=== PATIENT | male | born 1950 | race Caucasian/White ===

== ENCOUNTER 2020-09-19 13:01 | Outpatient (CLI) | payer OTHER, SELFPAY ==
--- NOTE | 2020-09-19 14:30 | NEURO_ITS ---
Impression: # Complains of numbness of hands. # Severe left Carpal Tunnel Syndrome. # Mild to moderate right Carpal Tunnel Syndrome. # No ulnar neuropathy across the elbow. # Abnormal needle/EMG exam of left APB. Nerve Conduction Studies Anti Sensory Summary Table Stim Site NR Peak (ms) P-T Amp (?V) Site1 Site2 Delta-P (ms) Dist (cm) Chadwick (m/s) Left Median Anti Sensory (2-3nd Digit) NO RESPONSE Wrist NR Wrist 2-3nd Digit 14.0 Wrist NR Wrist 2-3nd Digit 14.0 Right Median Anti Sensory (2-3nd Digit) Wrist 7.2 15.8 Wrist 2-3nd Digit 7.2 14.0 19 Wrist 8.0 21.6 Wrist 2-3nd Digit 7.2 14.0 19 Left Radial Anti Sensory (Base 1st Digit) Wrist 1.9 13.3 Wrist Base 1st Digit 1.9 0.0 Right Radial Anti Sensory (Base 1st Digit) Wrist 2.0 10.1 Wrist Base 1st Digit 2.0 0.0 Left Ulnar Anti Sensory (5th Digit) Wrist 2.7 50.1 Wrist 5th Digit 2.7 14.0 52 Right Ulnar Anti Sensory (5th Digit) Wrist 2.6 26.3 Wrist 5th Digit 2.6 14.0 54 Motor Summary Table Stim Site NR Onset (ms) O-P Amp (mV) Site1 Site2 Delta-0 (ms) Dist (cm) Chadwick (m/s) Left Median Motor (Abd Poll Brev) NO RESPONSE Wrist NR Elbow Wrist 26.0 Elbow NR Right Median Motor (Abd Poll Brev) Wrist 4.7 1.5 Elbow Wrist 5.2 31.0 60 Elbow 9.9 4.5 Left Ulnar Motor (Abd Dig Minimi) Wrist 3.0 5.5 A Elbow Wrist 5.4 32.0 59 A Elbow 8.4 4.4 Right Ulnar Motor (Abd Dig Minimi) Wrist 2.7 6.0 A Elbow Wrist 5.3 31.0 58 A Elbow 8.0 4.5 F Wave Studies NR F-Lat (ms) L-R F-Lat (ms) Left Median (Mrkrs) (Abd Poll Brev) DISPERSED RESPONSE NR Right Median (Mrkrs) (Abd Poll Brev) 30.24 Left Ulnar (Mrkrs) (Abd Dig Min) 29.87 1.67 Right Ulnar (Mrkrs) (Abd Dig Min) 28.20 1.67 EMG Side Muscle Nerve Root Ins Act Fibs Amp Dur Recrt Comment Right 1stDorInt Ulnar C8-T1 Nml Nml Nml Nml Nml Right Ext Indicis Radial (Post Int) C7-8 Nml Nml Nml Nml Nml Right Ext Digitorum Radial (Post Int) C7-8 Nml Nml Nml Nml Nml Right BrachioRad Radial C5-6 Nml Nml Nml Nml Nml Right PronatorTeres Median C6-7 Nml Nml Nml Nml Nml Right Abd Poll Brev Median C8-T1 Nml 1+ Nml >12ms Reduced Left 1stDorInt Ulnar C8-T1 Nml Nml Nml Nml Nml Left Ext Indicis Radial (Post Int) C7-8 Nml Nml Nml Nml Nml Left Ext Digitorum Radial (Post Int) C7-8 Nml Nml Nml Nml Nml Left BrachioRad Radial C5-6 Nml Nml Nml Nml Nml Left PronatorTeres Median C6-7 Nml Nml Nml Nml Nml Left Abd Poll Brev Median C8-T1 Nml 1+ Nml >12ms Reduced MTDD
== END 2020-09-19 13:02 | disposition home or self-care (01) ==
PROVIDERS: PCP Family Medicine; Visit Provider Family Medicine
DX: R20.2 Paresthesia of skin (principal); G56.03 Carpal tunnel syndrome, bilateral upper limbs
CPT/HCPCS: 95886; 95911

== ENCOUNTER → 2021-01-15 10:30 | Outpatient (CLI) | payer OTHER, SELFPAY ==
--- NOTE | ~2021-01-15 | XR_ITS ---
XR lumbar spine 2-3V DATE: 01/15/2021 10:50 INDICATION: Low back pain TECHNIQUE: AP, lateral, coned lateral lumbosacral views COMPARISON: 05/31/2018 lumbar spine FINDINGS: There is diffuse idiopathic skeletal hyperostosis of the lower thoracic and lumbar spine. V rodney prominent bridging osteophytes are noted in the lumbar area in particular. No fracture or bone destruction is evident. The included lower thoracic and lumbar pedicles appear in tact. There is mild loss of height at L4-5 interspace and moderately severe loss of interspace height at L5 -S1. The sacroiliac joints are intact. IMPRESSION: Diffuse idiopathic skeletal hyperostosis Mild degenerative disc disease at L4-5, moderately severe degenerative disc disease at L5-S1 Reviewed, dictated and finalized at location A. IMPRESSION: Diffuse idiopathic skeletal hyperostosis Mild degenerative disc disease at L4-5, moderately severe degenerative disc dis ease at L5-S1
== END ==
PROVIDERS: PCP Family Medicine; Visit Provider Family Medicine
DX: M48.15 Ankylosing hyperostosis [Forestier], thoracolumbar region (principal); M47.817 Spondylosis without myelopathy or radiculopathy, lumbosacral region
CPT/HCPCS: 72100

== ENCOUNTER 2021-08-23 00:49 | Day surgery (SDC) | payer OTHER, SELFPAY ==
[2021-08-05 13:34] VITALS: BMI 33.8
[2021-08-23 10:06] VITALS: BP 116/83; PULSE 98; RESP 18; TEMP 35.7; O2SAT 99; BMI 32.8
--- NOTE | 2021-08-23 10:10 | WPDANESEPPF ---
Anes - Initial Pre Proc Eval Procedure: Operation Date: 08/23/21 11:15 Proposed Procedures p Screening Colonoscopy - Dilan Husain MD Date/Time: 08/23/21 10:10 Surgeon: Dilan Husain MD Pre Op Diagnosis: neoplasm scr & hx of colon polyps Patient Data Age: 70 Gender: M Height: 1.78 m Weight: 103.9 kg Last Vital Signs Temp 35.7 C L 08/23/21 10:06 Pulse 98 08/23/21 10:06 Resp 18 08/23/21 10:06 BP 116/83 08/23/21 10:06 Pulse Ox 99 08/23/21 10:06 Allergies Allergy/AdvReac Type Severity Reaction Status Date / Time No Known Allergies Allergy Verified 08/23/21 10:05 Home Medications Medication Instructions Recorded Confirmed Type atorvastatin 40 mg PO DAILY 08/05/21 08/05/21 History escitalopram oxalate [Lexapro] 10 mg PO DAILY 08/05/21 08/05/21 History finasteride 5 mg PO DAILY 08/05/21 08/05/21 History Patient hx anesthesia problems: none Family hx anesthesia problems: none Results Review: All pre-operative results and documents have been reviewed as part of the pre-operative evaluation. [facility] Past Medical History Medical History (Updated 08/23/21 @ 10:10 by Nakul Kuhn MD) Hyperlipidemia Obesity Surgical History Surgical History (Updated 08/23/21 @ 10:13 by Nakul Kuhn MD) H/O colonoscopy Hx of tonsillectomy Social History Social History Smoking status: Former smoker Substance use: never Living arrangements: alone Spiritual care concerns: No Anes - Eval Final PreProcedure Day of Procedure 08/23/21 10:10 Patient weight: obese Heart: regular rate and rhythm Lungs: clear to auscultation Airway: Mallampati scale class II Neurological: alert and oriented Last oral intake: >/= 8 hours ASA classification: II Emergent: no Anesthetic plan: proceed Anesthesia type and monitoring: general GIVS and standard monitoring Results Review: All pre-operative results and documents have been reviewed as part of the pre-operative evaluation. Informed Consent: The patient's anesthetic plan and its attendant risks and benefits were discussed with the patient/family/POA. Questions were solicited and answers provided to the satisfaction of the patient/family/POA.
--- NOTE | 2021-08-23 10:16 | P.CONGI_ITS ---
Assessment and Plan Assessment and plan (1) History of colon polyps: Code(s): Z86.010 - Personal history of colonic polyps Status: Acute Assessment and Plan: Patient has a prior history of colon polyps. Most recently 2016. Plan is for surveillance colonoscopy at this time. Further recommendations will be given after endoscopy. Anticipate follow-up at 5 year intervals. GI Consult Note Consult date/time: 08/23/21 10:16 HPI: Frank Wright is a 70 year old male Presents for screening colonoscopy. Patient's weight appetite and bowel movements are normal. He denies abdominal pain. He has had no bleeding. Family history is noncontributory. Patient has a prior history of colon polyp in 2017. He reports his is recovering from resection of a colon cancer as well. Patient self presents today for neoplasia screening. Review of Systems Review of Systems: All systems reviewed & are unremarkable except as noted in HPI and below PMFSH Past Medical History Medical History (Updated 08/23/21 @ 10:17 by Dilan Husain MD) Hyperlipidemia Obesity Surgical History Surgical History (Updated 08/23/21 @ 10:13 by Nakul Kuhn MD) H/O colonoscopy Hx of tonsillectomy Social History Social History Smoking status: Former smoker Substance use: never Living arrangements: alone Spiritual care concerns: No Meds Home Medications and Allergies Home Medications Medication Instructions Recorded Confirmed Type atorvastatin 40 mg PO DAILY 08/05/21 08/05/21 History escitalopram oxalate [Lexapro] 10 mg PO DAILY 08/05/21 08/05/21 History finasteride 5 mg PO DAILY 08/05/21 08/05/21 History Allergies Allergy/AdvReac Type Severity Reaction Status Date / Time No Known Allergies Allergy Verified 08/23/21 10:05 Vital Signs Vital Signs - 24 hr 08/23/21 10:06 Temperature 96.3 F L Pulse Rate 98 Respiratory Rate 18 Blood Pressure 116/83 Pulse Oximetry 99 Exam Narrative: Physical exam reveals patient to be alert. Vital signs stable. HEENT exam is unremarkable. Patient is anicteric. Lungs are clear to auscultation and percussion. Heart is without murmur or extra sounds. Abdomina l exam bowel sounds are present soft nontender with no organomegaly. Digital external rectal exam is normal.
[2021-08-23] MEDS: LACTATED RINGERS 1,000 ML 150 ML IV CONT (10:17)
[2021-08-23 11:09] VITALS: BP 81/53; PULSE 87; RESP 18; O2SAT 93
[2021-08-23 11:19] VITALS: BP 80/52; PULSE 85; RESP 18; O2SAT 94
[2021-08-23 11:29] VITALS: BP 81/56; PULSE 84; RESP 15; O2SAT 98
== END 2021-08-23 11:45 | disposition home or self-care (01) ==
PROVIDERS: PCP Family Medicine; Visit Provider Internal Medicine Gastroenterology
PROC: 0DJD8ZZ Inspection of Lower Intestinal Tract, Via Natural or Artificial Opening Endoscopic (ICD-10-PCS; CPT 45378; principal; 2021-08-23 11:15)
DX: Z12.11 Encounter for screening for malignant neoplasm of colon (principal); K64.8 Other hemorrhoids; Z86.010 Personal history of colon polyps; E78.5 Hyperlipidemia, unspecified; E66.9 Obesity, unspecified; Z68.32 Body mass index [BMI] 32.0-32.9, adult; Z87.891 Personal history of nicotine dependence
CPT/HCPCS: 45378; J2704; J7120

== ENCOUNTER → 2022-06-30 10:31 | Outpatient (CLI) | payer OTHER, SELFPAY ==
--- NOTE | ~2022-06-30 | XR_ITS ---
Clinical Indication: Cough PA and lateral views of the chest: Comparison: 01/20/2017 Findings: The lungs are clear, without evidence of focal consolidation or pleural effusion. Cardiome diastinal silhouette is within normal limits. Bones and soft tissues are unremarkable. Impression: Normal chest. Reviewed, dictated and finalized at [facility]. Impression: Normal chest.
== END ==
PROVIDERS: PCP Family Medicine; Visit Provider Family Medicine
DX: R05.9 Cough, unspecified (principal)
CPT/HCPCS: 71046

== ENCOUNTER 2022-11-18 20:27 | Emergency (ER) | payer OTHER, SELFPAY ==
--- NOTE | ~2022-11-18 | CT_ITS ---
EXAMINATION: CT chest abdomen wo con DATE: 11/18/2022 21:50 INDICATION: fall . TECHNIQUE: Computed tomography (CT) of the chest and abdomen was performed without intravenous contra st. Automated exposure control and iterative reconstruction technique were employed. The dose-length product was 1448.36 mGy-cm. COMPARISON: X-ray chest, same date. FINDINGS: CHEST: No thoracic aortic injury. No mediastinal hematoma. Calcified mediastinal granuloma. No pericardial effusion. Mild coronary artery calcification. No acute lung injury. 15 mm spiculated nodule in the left lower lobe lobe, superior segment. Small ri ght upper lobe air cyst. Calcified right lung and hilar granulomas. Small focus of reticular and grou ndglass opacities in the dependent right lower lobe. No pleural effusion or pneumothorax. ABDOMEN: No solid organ injury. Mild fatty atrophy of the pancreas. Bilateral simple renal cysts. No evidence of bowel or mesenteric injury. No free fluid or free air. No retroperitoneal hematoma. Pelvic contents are atraumatic. MUSCULOSKELETAL: No acute fracture (excluding spine). No fracture or traumatic malalignment of the thoracic or the partially visualized lumbar spine. IMPRESSION: No acute process detected in the chest or abdomen. Spiculated 15 mm pulmonary nodule in the left lower lobe (superior segment). Recommend CT in 3 months , PET/CT, or tissue sampling. Reviewed, dictated and finalized at location K. IMPRESSION: No acute process detected in the chest or abdomen. Spiculated 15 mm pulmonary nodule in the left lower lobe (superior segment). Re commend CT in 3 months, PET/CT, or tissue sampling.
--- NOTE | ~2022-11-18 | XR_ITS ---
EXAMINATION: XR chest 2V Exam Date/Time: 11/18/2022 21:37 CDT HISTORY: chest pain Comparison: 06/30/2022. RESULT: Lines, tubes, and devices: None. Lungs and pleura: Senescent change, otherwise clear. Cardiomediastinal silhouette: Stable. Other: No acute osseous or upper abdominal finding. IMPRESSION: No acute cardiopulmonary process. Reviewed, dictated and finalized at location K.
--- NOTE | 2022-11-18 21:19 | ECG_ITS ---
Measurements Intervals [place] Rate: 74 P: 15 TN: 179 QRS: -8 QRSD: 98 T: -5 QT: 381 QTc: 423 Interpretive Statements SINUS RHYTHM MODERATE VOLTAGE CRITERIA FOR LVH, CONSIDER NORMAL VARIANT [MEETS CRITERIA IN ONE OF: R(aVL), S(V1), R(V5), R(V5/V6)+S(V1)] NONSPECIFIC T-WAVE ABNORMALITY ABNORMAL ECG NO PREVIOUS ECG AVAILABLE FOR COMPARISON Electronically Signed On 11-19-2022 9:23:42 CDT by Melchor Selby M.D.
[2022-11-18 21:20] VITALS: BP 147/79; PULSE 77; RESP 18; TEMP 36.8; O2SAT 98
[2022-11-18 23:01] VITALS: BP 144/76; PULSE 79; RESP 18; O2SAT 95
--- NOTE | 2022-11-18 23:42 | ED.FALL ---
HPI - Fall General Chief Complaint: Fall Stated Complaint: fell off mower, landed on back Time Seen by Provider: 11/18/22 23:13 History of Present Illness HPI Narrative: Patient was using his lawnmower when he lost his balance and fell landing on his back, he states that the fall was about 2 feet off the ground, however he has severe pain to his middle back and some to his chest. Worse with certain movements. Took some Tylenol initially had felt better however once he flexes his back the pain came back Related Data Home Medications Medication Instructions Recorded Confirmed atorvastatin 40 mg tablet 40 mg PO DAILY 08/05/21 07/18/22 finasteride 5 mg tablet 5 mg PO DAILY 08/05/21 07/18/22 lisinopril 10 mg tablet 10 mg PO DAILY 07/18/22 07/18/22 Allergies Allergy/AdvReac Type Severity Reaction Status Date / Time No Known Allergies Allergy Verified 11/18/22 21:20 Review of Systems Review of Systems: CONST: No fever. HEENT: No sore throat C/V: Sternal pain RESP: Some shortness of breath GI: No abdominal pain : No dysuria. M/S: Back pain SKIN: No rash. 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 Essential (primary) hypertension History of colon polyps Hyperlipidemia Obesity Obstructive sleep apnea (adult) (pediatric) Other spondylosis, lumbar region Paresthesia of skin Post-void dribbling Surgical History Surgical History H/O colonoscopy Hx of tonsillectomy Social History Social History Smoking status: Former smoker Tobacco type: cigarettes Second hand tobacco smoke exposure: No Alcohol intake: never Substance use: never Substance use type: does not use Lack of Transportation: No Lack of Food: Never True Current Housing: I Have Housing Concerned About Future Housing: No Difficulty Paying Gas/Electric Bills: No Difficulty Paying for Meds: No Currently Unemployed: No Education: Trade/Vocational Certificate Difficulty w/ Childcare or Family Care: No Living arrangements: with family Occupation/Education: occupation Gender identity (if verbalized by the patient): Male Sexual Orientation (if Verbalized by the Patient): Straight or Heterosexual Spiritual care concerns: No Exam Narrative: EXAMINATION OF ORGAN SYSTEMS/BODY AREAS: Constitutional: Vital signs per nursing GENERAL: Resting comfortably in bed except for when he has to move his back and he winces HEAD: Normal with no signs of head trauma. EYES: EOMI, conjunctiva normal ENT: Hearing grossly intact LUNGS: Nonlabored breathing. HEART: [Regular rate and rhythm] ABD: [Soft], [nontender to palpation] BACK: Tender to palpation at T6-8 midline back EXT: Normal range of motion SKIN: [No rashes or lesions.] NEURO: [Alert and oriented x 3. No gross focal sensory or strength deficits.] PSYCH: Normal affect Course Vital Signs Vital signs: Vital Signs Temperature 98.3 F 11/18/22 21:20 Pulse Rate 77 11/18/22 21:20 Respiratory Rate 18 11/18/22 21:20 Blood Pressure 147/79 H 11/18/22 21:20 Pulse Oximetry 98 11/18/22 21:20 Temperature 98.3 F 11/18/22 21:20 Pulse Rate 73 11/19/22 00:05 Respiratory Rate 18 11/19/22 00:05 Blood Pressure 135/70 11/19/22 00:05 Pulse Oximetry 97 11/19/22 00:05 Oxygen Delivery Room Air 11/18/22 23:01 MDM - Fall MDM Narrative Medical decision making narrative: 72-year-old male presents here after falling on his back and having bad back pain. Vital stable, on exam he is well-appearing except for when he has to move his back a certain way, and he also
[2022-11-18] MEDS: oxyCODONE HCL (*CRX) 5 MG TAB IR PO (23:55)
[2022-11-18] MEDS: LIDOCAINE 5% PATCH 1 PATCH TRANSDERM (23:56)
[2022-11-19 00:05] VITALS: BP 135/70; PULSE 73; RESP 18; O2SAT 97
== END 2022-11-19 00:05 | disposition home or self-care (01) ==
PROVIDERS: Emergency Provider Emergency Medicine; PCP Family Medicine
DX: S29.9XXA Unspecified injury of thorax, initial encounter (principal); I25.10 Atherosclerotic heart disease of native coronary artery without angina pectoris; I10 Essential (primary) hypertension; G47.30 Sleep apnea, unspecified; W30.89XA Contact with other specified agricultural machinery, initial encounter
CPT/HCPCS: 71046; 71250; 74150; 93005; 99284; A9270

== ENCOUNTER 2023-02-19 09:21 | Outpatient (CLI) | payer OTHER, SELFPAY ==
--- NOTE | ~2023-02-19 | CT_ITS ---
EXAMINATION: CT diagnostic chest wo con DATE: 02/19/2023 09:43 INDICATION: Solitary pulmonary nodule TECHNIQUE: Computed tomography (CT) of the chest was performed without intravenous contrast. The dose -length product (DLP) was 230.97 mGy-cm. Automated exposure control and iterative reconstruction tech [employer] were employed. COMPARISON: 11/18/2022 FINDINGS: There is an unchanged 15 mm spiculated nodule in the superior segment of the left lower lob e. There is mild emphysema. No pleural effusion or pneumothorax. Airspace opacities in the medial asp ect of the right lower lobe have nearly completely resolved. No pathologically enlarged thoracic lymp h nodes are identified. The heart size is normal. There is calcified coronary artery atherosclerosis. There are bridging osteophytes at multiple levels in the spine, consistent with diffuse idiopathic s keletal hyperostosis (DISH). There is an 18 mm cystic lesion in the body of the pancreas (image 120). IMPRESSION: 1. 15 mm spiculated nodule of the left lower lobe. Recommend CT-guided biopsy and/or PET CT. 2. Cystic lesion in the body of the pancreas. The differential diagnosis includes pseudocyst, intradu ctal papillary mucinous neoplasm (IPMN), mucinous cystic neoplasm (MCN), and the less common serous c ystadenoma and neuroendocrine tumor. Correlate for history of pancreatitis. Follow-up pancreas protoc ol CT or MRI with contrast in six months is recommended. Reviewed, dictated and finalized at location L. NING OPERATOR IMPRESSION: 1. 15 mm spiculated nodule of the left lower lobe. Recommend CT-guided biopsy a nd/or PET CT. 2. Cystic lesion in the body of the pancreas. The differential diagnosis includ es pseudocyst, intraductal papillary mucinous neoplasm (IPMN), mucinous cystic neoplasm (MCN), and the less common serous cystadenoma and neuroendocrine tumor . Correlate for history of pancreatitis. Follow-up pancreas protocol CT or MRI with contrast in six months is recommended.
== END 2023-02-19 09:22 | disposition home or self-care (01) ==
PROVIDERS: PCP Family Medicine; Visit Provider Family Medicine
DX: R91.1 Solitary pulmonary nodule (principal)
CPT/HCPCS: 71250

== ENCOUNTER 2023-03-04 09:22 | Outpatient (CLI) | payer OTHER, SELFPAY ==
[2023-03-04] VITALS (11 sets, daily range): BP systolic 109–157; BP diastolic 65–92; PULSE 58–73; RESP 16–20; TEMP 36.4; O2SAT 96–100; BMI 32.6
--- NOTE | ~2023-03-04 | XR_ITS ---
EXAMINATION: XR chest 1V portable INDICATION: Post image guided lung biopsy TECHNIQUE: Portable AP chest at 1430 hours COMPARISON: 1229 hours FINDINGS: The lungs are free of acute opacities. No pleural effusion or pneumothorax. The cardiomedia stinal silhouette is normal. There is mild osteoarthritis of the shoulders. IMPRESSION: 1. No acute cardiopulmonary abnormality or pneumothorax. Reviewed, dictated and finalized at location F. GRAPH MESSENGER
--- NOTE | ~2023-03-04 | XR_ITS ---
EXAMINATION: XR chest 1V DATE: 03/04/2023 11:32 INDICATION: Status post percutaneous left lung biopsy TECHNIQUE: frontal view of the chest was obtained. COMPARISON: Chest CT dated 03/01/2023 FINDINGS: Lungs are clear with no focal airspace opacities, pulmonary edema, pleural effusion or pneumothorax. The biopsied nodule in the superior segment of the left lower lobe is unable to be clearly distinguis hed on plain radiographs. The cardiomediastinal silhouette is normal. IMPRESSION: 1. No pneumothorax or other acute cardiopulmonary disease post percutaneous biopsy of an indeterminat e left lower lobe nodule. Reviewed, dictated and finalized at location A. S REPRESENTATIVE GRAPHIC ART IMPRESSION: 1. No pneumothorax or other acute cardiopulmonary disease post percutaneous bio psy of an indeterminate left lower lobe nodule.
--- NOTE | ~2023-03-04 | XR_ITS ---
EXAMINATION: XR chest 1V portable DATE: 03/04/2023 12:34 INDICATION: Status post percutaneous left lung biopsy TECHNIQUE: frontal view of the chest was obtained. COMPARISON: Chest radiograph dated 03/04/2023 at 11:30 AM FINDINGS: The lungs remain clear with no focal airspace opacities, pulmonary edema, pleural effusion or pneumot horax. The cardiomediastinal silhouette is normal. Moderate degenerative skeletal changes at the bila teral shoulders. There are bridging osteophytes at multiple levels consistent with diffuse idiopathic skeletal hyperostosis (DISH). IMPRESSION: 1. No pneumothorax or other acute cardiopulmonary disease post percutaneous biopsy of a left lower lo be nodule. Reviewed, dictated and finalized at location A. NIC CARE NURSE IMPRESSION: 1. No pneumothorax or other acute cardiopulmonary disease post percutaneous bio psy of a left lower lobe nodule.
--- NOTE | ~2023-03-04 | CT_ITS ---
EXAMINATION: CT biopsy lung w/imaging DATE: 03/04/2023 11:33 INDICATION: Solitary pulmonary nodule TECHNIQUE: The procedure including the risks and benefits was discussed with the patient. Risks discu ssed included infection, approximately 1/20 risk of symptomatic hemorrhage beyond mild hemoptysis, ap proximately 1/3 risk of pneumothorax, and approximately 1/10 risk of pneumothorax severe enough to wa rrant chest tube placement. The patient understood the risks and agreed to proceed. The patient was p laced prone. The skin overlying the left posterior chest was prepped and draped in sterile fashion. Anesthetic was administered with 1% lidocaine subcutaneously. A 19 gauge outer needle was advanced under CT guidance to the lesion of interest. A 20 gauge core biopsy needle was then used to obtain 4 core biopsy specimens. The needle was removed and the entry site was cleaned and dressed. There were no immediate complications. The dose-length product was 129.56 mGy-cm. FINDINGS: CT images demonstrate the outer needle tip adjacent to a 1.3 cm spiculated nodule in the christensen perior segment of the left lower lobe.. IMPRESSION: 1. Successful CT-guided biopsy of a 1.3 cm spiculated nodule in the superior segment of the left lowe r lobe. Reviewed, dictated and finalized at location A. BASKET MAKER IMPRESSION: 1. Successful CT-guided biopsy of a 1.3 cm spiculated nodule in the superior se gment of the left lower lobe.
[2023-03-04 10:03] LABS: Mean Platelet Volume 9.6 fl (7.4-10.4); Platelet Count Result 209 k/mm3 (150-375)
[2023-03-04 10:18] LABS: Prothrombin Time 13.7 Seconds (11.1-14.7)
== END 2023-03-04 15:05 | disposition home or self-care (01) ==
PROVIDERS: PCP Family Medicine; Visit Provider Radiology Diagnostic Radiology
PROC: BB24ZZZ Computerized Tomography (CT Scan) of Bilateral Lungs (ICD-10-PCS; CPT 32408; principal; 2023-03-04 11:00)
DX: R91.1 Solitary pulmonary nodule (principal)
CPT/HCPCS: 32408; 36415; 71045; 85049; 85610; 88305